=== PATIENT | female | born 1950 | race Caucasian/White ===

== ENCOUNTER 2016-07-10 21:59 | Inpatient (IN) | payer MEDICARE, OTHER ==
--- NOTE | ~2016-07-10 | CT71 ---
[facility] A Service of [facility] RADIOLOGY TEXT RESULTS PATIENT: KAZ MORENO LOCATION: CEDOF : 52 UNIT #: [id number] AGE: [address]: Yesika Musa MD SEX: F ORDER DR: [id number] [facility] [address] [facility] [facility]. [place], [place] [address] [id number] I MR#: [id number] Acc #: [id number] NAME: KAZ OMRENO : 1950 SEX: F STUDY DATE/TIME: 07/10/2016 23:11 UNIT: CEDOF ROOM: 00223 STUDY DESCRIPTION: CT Head Wo Contrast Attending Physician: Yesika Musa M.D. Ordering Physician: Coleman Vences M.D. Primary Care Physician: Abel Moreland M.D. MEDICAL IMAGING REPORT This report is preliminary unless electronic signature is present EXAM CT head. INDICATIONS Confusion for 1 day. Generalized weakness. TECHNIQUE CT of the head without contrast. This CT exam was performed with one or more of the following radiation dose reduction techniques: Automatic exposure control, adjustment of mA and/or kV according to patient size, and iterative reconstruction. COMPARISON CT head 01/23/2016. FINDINGS There is mild motion artifact on the exam. There is no acute intracranial hemorrhage, mass lesion, or acute infarct. There is mild global cerebral atrophy. Ventricles and basilar cisterns are normal in size and configuration. No extraaxial collections. No acute osseous abnormalities. IMPRESSION 1. Motion degraded exam, however no acute findings are identified. 2. Mild global atrophy. Dictated by... Jairon Whitehead M.D. THIS IS AN ELECTRONICALLY VERIFIED REPORT Jairon Whitehead M.D. at 07/11/2016 4:03 AM [facility] A Service of [facility] RADIOLOGY TEXT RESULTS PATIENT: KAZ MORENO LOCATION: CEDOF : 52 UNIT #: [id number] AGE: [address]: Yesika Musa MD SEX: F ORDER DR: AGATHA/freida TD: 07/11/2016 03:22 JOB #: [id number] MEDICAL IMAGING REPORT Page 1 of 1 COPY
--- NOTE | ~2016-07-10 | DS ---
Unit #: [id number] #: [id number] Patient: KAZ MORENO [id number] [address] [place], [place] [address] [id number] I MR#: [id number] NAME: KAZ MORENO ROOM: 305 Age: 66 Sex: F Admission Date: 07/11/2016 : 1950 Discharge Date: 07/11/2016 Attending Physician: Radha Joseph M.D. Primary Care Physician: Abel Moreland M.D. DISCHARGE SUMMARY PRINCIPAL DIAGNOSES 1. Acute delirium likely secondary to urinary tract infection. 2. Urinary tract infection with pending urine culture. 3. Atrial fibrillation, currently in normal sinus rhythm, maintain anticoagulation. 4. Diabetes mellitus type 2, insulin-requiring with associated peripheral neuropathy. 5. Hypertension. 6. Presumed depression with anxiety. 7. History of chronic migraine headaches. 8. Gastroesophageal reflux disease. CONSULTANTS Dr. Mejia, Neurology. PROCEDURES 1. EEG with questionable left central parietal abnormality without clinical evidence of seizure. 2. Chest x-ray July 10, 2016, without acute findings. 3. CT of the head without contrast on July 10, 2016, which was motion-degraded, atrophy noted. CLINICAL HISTORY AND HOSPITAL COURSE Ms. Moreno is a 66-year-old female brought into the emergency department with abrupt onset in mental status. The patient was combative in the emergency department, also required Geodon. She was found to have a urinary tract infection in the emergency department. Workup was, otherwise, unremarkable. She was admitted for further evaluation. Patient's mental status has completely returned to normal after dosing of Geodon. She was initially complaining of some right facial numbness but this was in association with one of her migraine headaches. Her headache has been treated and her right facial numbness has resolved. She has a nonfocal neurologic exam. Unfortunately, she is unable to have MRI secondary to her having a bladder stimulator. She did undergo an EEG with findings that were abnormal; however, she is maintained on Lamictal as an outpatient and has had no evidence of seizure. At this time, it is felt that the patient most likely had an acute delirium, whether this was secondary to urinary tract infection versus medication, versus perhaps some psychiatric etiology is unclear but she is back to baseline. We will complete a course of antibiotic therapy, continue her on her other home antibiotics and she will follow-up with her neurologist as an outpatient. DISCHARGE CONDITION Unit #: [id number] #: [id number] Patient: KAZ MORENO Stable. DISCHARGE STATUS Discharged to home. DISCHARGE MEDICATIONS 1. Keflex 500 mg p.o. t.i.d. for another 2 days. 2. Fioricet 50/300, 400 mg 1 every 4 hours p.r.n. for headache. 3. Zofran 4 mg p.o. q.6 hours p.r.n. for nausea. 4. Zestoretic 20/12.5 mg daily. 5. Eliquis 5 mg b.i.d. 6. Lamictal 200 mg twice daily. 7. Paxil 40 mg daily. 8. Metformin 1000 mg b.i.d. 9. Actos 30 mg daily. 10. Seroquel 50 mg at bedtime. 11. Ambien 10 mg q.h.s. p.r.n. for insomnia. 12. Xanax 0.5 mg b.i.d. 13. Norvasc 10 mg daily. 14. Sotalol 80 mg b.i.d. 15. Lantus 10 units subcutaneously at bedtime. 16. Percocet 10/325 one tablet p.o. q.6 hours p.r.n. for pain. 17. Protonix 40 mg daily. DISCHARGE INSTRUCTIONS The patient is instructed to follow a regular diet. She can increase her activity as tolerated. FOLLOW UP The patient will follow up with her primary provider, Dr. Moreland in 2 weeks. I will follow up urine culture tomorrow when available and adjust antibiotics if necessary. Dictated by... Radha Joseph M.D. ELIZABETH/tram TD: 07/12/2016 23:49 JOB #: [id number] DISCHARGE SUMMARY Page 1 of 1 X Radha Joseph MD DISCHARGE SUMMARY
--- NOTE | ~2016-07-10 | HP ---
Unit #: [id number] #: [id number] Patient: KAZ MORENO [id number] [address] [address] [id number] I MR#: [id number] NAME: KAZ MORENO ROOM: 36626 Age: 66 Sex: F Admission Date: 07/11/2016 : 1950 Attending Physician: Yesika Musa M.D. Primary Care Physician: Abel Moreland M.D. HISTORY AND PHYSICAL CHIEF COMPLAINT Altered mental status. HISTORY This 66-year-old female with atrial fibrillation, hypertension, AODM, anxiety disorder, is admitted for altered mental status. The patient, at this time, is only oriented x1. Family did not accompany the patient. EMS was called around 9 p.m. last evening for a sudden change in mental status. The patient was brought to this emergency department confused, combative and agitated requiring 20 mg of IM Geodon. She now was much more calm, but is still disoriented, no longer combative. In the course of her evaluation, she was found to have a urinary tract infection but little else to explain her altered mental status. PAST MEDICAL HISTORY 1. CAD with previous ST elevation DE 06/2007, associated with ventricular fibrillation requiring defibrillation and also cardiac arrest. Only mild to moderate disease noted on cardiac catheterization. Echo at that time revealed an ejection fraction of 40% to 45% with wall motion abnormalities. 2. Essential hypertension. 3. 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 4. Atrial fibrillation, on Eliquis and Betapace. 5. Migraine headaches. 6. Hyperlipidemia. 7. Anxiety disorder. 8. Kidney stone requiring stent placement complicated by right sided urinoma and hematuria. 9. Admission 01/2016 for left wrist abscess and septic arthritis with cultures positive for MRSA requiring four weeks of IV vancomycin. 10. BTL. 11. Cholecystectomy. 12. Nasal reconstructive surgery. ALLERGIES Penicillin, codeine, possibly aspirin. HOME MEDICATIONS I only have a partial list which makes mention of: 1. Lamictal 200 mg b.i.d. 2. Protonix 40 mg daily. 3. Norvasc 10 mg daily. 4. Percocet 10/325 q.i.d. Unit #: [id number] #: [id number] Patient: KAZ MORENO 5. Eliquis 5 mg b.i.d. Will contact [facility] for the rest of her medications. According to discharge summary 01/2016, patient was takin. Zestoretic. 2. Paxil. 3. Seroquel. 4. Ambien. 5. Xanax. 6. Sotalol. 7. Lipitor. 8. Levemir. 9. Sliding scale NovoLog. FAMILY HISTORY Breast and lung cancer along with CAD. SOCIAL HISTORY The patient is living with a male friend. She smokes one half pack per day of tobacco, does not drink alcohol. REVIEW OF SYSTEMS Difficult to obtain as patient is quite confused. PHYSICAL EXAMINATION GENERAL APPEARANCE: Pale appearing 66-year-old confused female, currently in no acute distress. VITAL SIGNS: Temperature 98.4, pulse 93, respirations 18, blood pressure 131/100. O2 saturation is 96% on room air. HEENT: Eyes PERRLA. Extraocular muscles are intact. Pharynx is benign. NECK: Supple without adenopathy or thyromegaly. CHEST: Clear. CARDIAC: Normal S1 and S2 without definite murmur. ABDOMEN: Bowel sounds are present. No hepatosplenomegaly, tenderness or masses. EXTREMITIES: Without edema. Pedal pulses are present. No ulcers on the feet. NEUROLOGIC EXAM: The patient is awake, she is alert. She is oriented to person only. Cranial nerves are intact. She has equal strength throughout. DIAGNOSTIC STUDIES LABORATORY: Admission labs - hematocrit is 34.8 with an elevated MCV, normal white count and platelet count. Coags are normal. SMA-12 - glucose 191, sodium 132, calcium 10.4, alkaline phos. 111, BHOB normal, alcohol level is less than 5. Urine tox screen positive for opiates, barbiturates and TCA. Urinalysis - 2+ leukocyte esterase with 25-50 white cells, no bacteria. IMAGING: Head CT - mild global atrophy. Chest x-ray - no acute disease. CARDIOVASCULAR: EKG - sinus rhythm, rate 78. Nonspecific ST wave Unit #: [id number] #: [id number] Patient: KAZ MORENO abnormalities with Q's noted in V1 and V2. ASSESSMENT 1. Abrupt change in mental status which could represent delirium: Rule out seizure, etc. 2. Likely urinary tract infection. 3. Adult onset diabetes mellitus with peripheral neuropathy. 4. Atrial fibrillation with left ventricular dysfunction: The patient is anticoagulated on Eliquis. 5. Hypertension. 6. Psychiatric disorder. 7. History of methicillin resistant Staph aureus. PLANS 1. Blood cultures. 2. Will give Rocephin and vancomycin. If patient's mental status is not clearing, would consider acyclovir and an LP. 3. EEG and MRI and will ask neurology to see. 4. Verify home medicines in the morning. 5. Again, if not clearing, will workup further. 6. Will decrease sedating medicines while confused. Dictated by Yesika Musa M.D. AML/df TD: 07/11/2016 05:08 JOB #: [id number] HISTORY AND PHYSICAL Page 1 of 1 X Yesika Musa MD X HISTORY AND PHYSICAL
--- NOTE | ~2016-07-10 | CO ---
Unit #: [id number] #: [id number] Patient: KAZ MORENO [id number] [facility] [address] [facility]. [place], [place] [address] [id number] Dora MR#: [id number] NAME: KAZ MORENO ROOM: 305 Age: 66 Sex: F Admission Date: 07/11/2016 : 1950 Attending Physician: Radha Joseph M.D. Primary Care Physician: Abel Moreland M.D. Consultation Date: 07/11/2016 CONSULTATION REPORT PRIMARY CARE PHYSICIAN Abel Moreland M.D. REASON FOR CONSULTATION Altered mental status. PATIENT IDENTIFICATION This is a 66-year-old right-handed female, evaluated in room 305 at [facility]. SOURCE OF INFORMATION Obtained from the patient as well as medical record. HISTORY OF PRESENT ILLNESS This is a 66-year-old right-handed female with past medical history of CAD; hypertension; diabetes mellitus type 2; atrial fibrillation, on anticoagulation with Eliquis; migraines; anxiety; hyperlipidemia, who presents to [facility] with change in mental status. She was apparently very confused and combative in the ER. Apparently, this was a sudden onset. The patient was brought in via EMS. Last known well was not clear. Looking in the ER records it seems though she may have been last known well at 2100 hours, but was noted to have sudden onset of mental status changes. There is no family at the bedside. When I discussed with the patient today, she is now alert and oriented. She did seem tearful and upset about not remembering what had happened. She received Geodon in the ER and a normal saline bolus and actually improved significantly. The patient states that she remembers getting up on the day of ER arrival and having migraine. She states that she has ongoing right-sided migraines and has for years. She states that sometime she does have auras though she denies having mental status changes with her migraines. She states that she does not remember a whole lot about coming to the hospital, but remembers feeling confused at home briefly. She was noted in the emergency room to be confused, combative, and agitated. Again, she required 20 mg of IM Geodon. She following that became much more calm, but was still disoriented. In the course of evaluation, she was noted to have a possible UTI and that was treated with initiation of antibiotics. She had a CT of the head without contrast done in the ER that was motion degraded, but no acute findings were noted. It does show mild global atrophy. The patient currently is back to her baseline essentially. She is oriented to person and place. She could tell me the day of the week, the day of the month, the year. She initially states it is April, but then corrects herself and realizes it is June. Otherwise, she can answer all questions appropriately. She can tell us through her pharmacy, as far as her medications confirmed, she can tell Unit #: [id number] #: [id number] Patient: KAZ MORENO us what medication she is on and why and can answer all questions appropriately at this time. Her urine tox screen was positive for opioids, barbiturates, and TCA. She did fill a prescription apparently yesterday for Ambien, but she states she has been on Ambien for years. She is on Percocet, Xanax, Paxil, Ambien, Fioricet, and Zofran among other medications. The patient states that she feels better and wants to go home today. She states that she lives with a male friend who helps watch out for her. She denies any change in her medications. She denies any recent illness or injury, infectious symptoms, travel outside the country, camping or exposure to ill or sick contacts or any recent injury or illness or neck pain. She does complain of acute on chronic right-sided headache with photophobia and phonophobia and reports that she has chronic migraines. She states that she takes p.r.n. Fioricet for migraines and sometimes Percocet and states that she is on Lamictal long-term for preventative therapy. She states that she used to see Dr. Abrams for Neurology Services, but has not seen a neurologist since he moved over to [place] that her primary care provider manages her medications for her migraines. PAST MEDICAL HISTORY 1. Migraines, see above. 2. CAD with previous ST-elevation myocardial infarction in 2007 associated with ventricular fibrillation that did require defibrillation and cardiac arrest, only bkwo-[id number] disease noted on cardiac catheterization. Echo at that time revealed an ejection fraction of 40% to 45% with wall motion abnormalities. 3. Hypertension. 4. Diabetes mellitus type 2 with diabetic peripheral neuropathy. 5. Atrial fibrillation, maintained on anticoagulation with Eliquis. 6. Hyperlipidemia. 7. Anxiety. 8. Kidney stone that required stent placement, complicated by right-sided urinoma and hematuria. 9. Admission in 01/2016 for left wrist abscess and septic arthritis with cultures positive for MRSA that required 4 weeks of IV vancomycin. 10. BTL. 11. Cholecystectomy. 12. Nasal reconstructive surgery. ALLERGIES Penicillin, codeine, aspirin. HOME MEDICATIONS As per medication reconciliation form that was done this morning include Ambien 10 mg p.o. q.h.s. p.r.n. insomnia, Eliquis 5 mg p.o. b.i.d., alprazolam 0.5 mg p.o. b.i.d., paroxetine 40 mg p.o. daily, lamotrigine 2 tablets p.o. b.i.d. she actually takes 200 mg b.i.d. per the patient, Betapace 80 mg p.o. b.i.d., metformin 1000 mg p.o. b.i.d., Percocet 10/325 one tablet p.o. q.6 hours p.r.n. pain, Actos 30 mg p.o. daily, Seroquel 50 mg p.o. q.h.s., Protonix 40 mg p.o. daily, Fioricet 50/300/40 mg capsule 1 tablet p.o. q.4 hours p.r.n. migraine, takes amlodipine besylate 10 mg p.o. daily, Zofran p.o. q.6 hours p.r.n. nausea dosage not listed, Zestoretic 10/12.5 mg tablet one tablet p.o. daily, Lantus SoloSTAR 10 units subcu at bedtime. FAMILY HISTORY Positive for malignancy and CAD. Unit #: [id number] #: [id number] Patient: KAZ MORENO SOCIAL HISTORY The patient lives with a male friend. She smokes a half pack per day of tobacco. Denies alcohol use or illicit drug use. REVIEW OF SYSTEMS 14-point review of systems was attempted. Pertinent positives are as discussed above, otherwise negative. PHYSICAL EXAMINATION VITAL SIGNS: Temperature 98.1, she has been afebrile; pulse 78; respirations 18; blood pressure 140/73, blood pressure in the ER on arrival was 131/100; oxygen saturation 99%. Height 5 feet 3 inches, weight 126 pounds. BMI is not listed. NEUROLOGIC: The patient is currently awake, alert, and oriented to person, place, and time. Essentially fully oriented to events though she did initially stated it was April. She could tell me the day of the week, why she is here, and answer questions appropriately. She has no right or left confusion. No finger agnosia. No aphasia, dysarthria, or apraxia. Cranial nerve exam, she demonstrates full lim of vision. Eyes are conjugate without ptosis or nystagmus. Extraocular movements are intact. Sensation of face and scalp is intact. Strength of the facial expression is intact. Hearing is intact to finger rub and conversation. Tongue is midline. Uvula is midline. Palate elevation is normal. Head turning and shoulder shrug are unremarkable. Neck is supple. Motor exam, she demonstrates normal bulk and tone. Strength is equal 5/5 in all extremities. Sensory exam, intact though she does have decreased sensation in a stocking type distribution of her lower extremities bilaterally. Gait unremarkable. I did watch her ambulate to the bathroom. Romberg deferred. Reflexes, unable to elicit. Toes are equivocal. Coordination unremarkable. DIAGNOSTIC STUDIES IMAGING STUDIES: CT of the head, please see above. Chest x-ray, portable single view on 07/10/2016, no acute cardiopulmonary findings or significant interval change per Radiology report. LABORATORY RESULTS: Sodium 134, potassium 4, chloride 104, CO2 of 23, glucose 148, BUN 14, creatinine 0.7, estimated GFR 91.6, calcium 10.2. White blood cell count 10.3, hemoglobin 12.7, hematocrit 36.9, and platelet count 414. Alcohol level less than 5. Initial estimated GFR 53. Urine tox screen positive for opioids, barbiturates, and TCA. PT is 10.0, INR 1.0, PTT 29.1. Urinalysis shows 2+ leuks, 25 to 50 white cells, negative for bacteria. Culture pending. Initial white count 9.8. IMPRESSION Change in mental status, not discussed above. The patient reports on exam, right facial numbness and right leg numbness, but no signs appreciated on exam. No abnormalities or focal deficits appreciated. She is noticing symptoms have resolved. Her mental status has resolved back to baseline. Differential diagnosis for this transient confusion would be to consider medication effect, possible migraine with rule out central etiology, so she is unable to undergo MRI here. She has a bladder stimulator. EEG shows very questionable central parietal phase reversing, but she is already on a good dose of Lamictal 200 mg b.i.d. and must also consider ischemic etiology. However, the patient is already on Eliquis and is taking her medications and is compliant according to the patient. I recommend that she remain on Eliquis and have further outpatient evaluation. She can be discharged to follow up with outpatient Neurology Unit #: [id number] #: [id number] Patient: KAZ MORENO for further testing. She is being medically managed. Given that she responded so well to Geodon, concerned for possible medication effect in treating her migraine, and she has improved with Fioricet. Continue home dose of Lamictal as well as Eliquis. The patient was seen by Dr. Mejia and he agrees to the above. Recommend that she have outpatient MRI at [facility] or [facility] if compatible with bladder stimulator and follow up with outpatient Neurology at either [facility] or with Dr. Ryan Lock. Please call for any questions or issues. We thank you very much for allowing us to assist in the care of this patient. Dictated by... Barb Dorado A.P.R.N. for Nesha Hampton/[place] TD: 07/12/2016 02:35 JOB #: [id number] CONSULTATION REPORT Page 1 of 1 X Barb Dorado APRN X CONSULTATION REPORT
--- NOTE | ~2016-07-10 | EE ---
Unit #: [id number] #: [id number] Patient: KAZ MORENO [id number] [address] [address] [id number] I MR#: [id number] NAME: KAZ MORENO : 1950 SEX: F STUDY DATE/TIME: 07/11/2016 UNIT: C3A PCU ROOM: 305 STUDY DESCRIPTION: EEG Attending Physician: Radha Joseph M.D. Referring Physician: Radha Joseph M.D. Primary Care Physician: Abel Moreland M.D. NEURODIAGNOSTICS REPORT EXAM EEG REASON FOR THE STUDY Episode of altered mental status. EEG DESCRIPTION This is an inpatient, digitally recorded multi-montage adult EEG with leads placed according to the International 10-20 System. Photic stimulation was attempted. This EEG shows 8 to 9 Hz posterior background. The patient then fell asleep and stage 2 sleep was seen. There were some transients seen between C3 and P3, occasionally very sharp looking, phase reversing with possibility of after following slow wave also but single and no other lim were seen. No clinical events were seen. Hyperventilation was not really done well. Photic stimulation was attempted in intermittent stepwise pattern up to the flash frequency of 30 Hz but I did not see any driving, asymmetry or paroxysmal activity. No clinical events were seen. IMPRESSION Possibility of some focal changes are seen. Could be transients, could be interictal discharges so please clinically correlate and correlate with imaging studies. Dictated by... Nesha Hampton/leelee TD: 07/12/2016 06:11 JOB #: [id number] Unit #: [id number] #: [id number] Patient: KAZ MORENO NEURODIAGNOSTICS REPORT Page 1 of 1 X Nii Mejia MD NEURODIAGNOSTICS REPORT
--- NOTE | ~2016-07-10 | EKG ---
PATIENT: KAZ MORENO UNIT #: [id number] Ventricular Rate: 78 BPM Atrial Rate: 78 BPM P-R Interval: 114 ms QRS Duration: 68 ms Q-T Interval: 378 ms QTC Calculation(Bezet): 430 ms P [place]: 33 degrees Calculated R [place]: -19 degrees Calculated T [place]: 24 degrees Diagnosis Line: Normal sinus rhythm Diagnosis Line: Low voltage QRS Diagnosis Line: Septal infarct , age undetermined Diagnosis Line: Abnormal ECG Diagnosis Line: When compared with ECG of 23-JAN-2016 02:08, Diagnosis Line: Vent. rate has decreased BY 60 BPM Diagnosis Line: Septal infarct is now Present Diagnosis Line: Nonspecific T wave abnormality no longer evident Diagnosis Line: in Anterolateral leads Diagnosis Line: Confirmed by MIRYAM BRANTLEY MD ([id number]) on 07/12/2016 Diagnosis Line: 5:57:39 PM INTERPRETING MD: KARON BRUMFIELD
--- NOTE | ~2016-07-10 | CR72 ---
[facility] A Service of [facility] & [facility] RADIOLOGY TEXT RESULTS PATIENT: KAZ MORENO LOCATION: [facility] [id number] : [birth year] UNIT #: [id number] AGE: [address]: Yesika Msua MD SEX: F ORDER DR: [id number] [facility] [address] [place], [place] [address] [id number] MR#: [id number] Acc #: [id number] NAME: KAZ MORENO : 1950 SEX: F STUDY DATE/TIME: 07/10/2016 22:29 UNIT: [facility] ROOM: 80179 STUDY DESCRIPTION: CR Chest Single View Portable Attending Physician: Yesika Musa M.D. Ordering Physician: Coleman Vences M.D. Primary Care Physician: Abel Moreland M.D. MEDICAL IMAGING REPORT This report is preliminary unless electronic signature is present EXAM Single view chest INDICATIONS Altered mental status. Combative. Shortness of air and cough. FINDINGS Single portable AP view of the chest compared to 01/23/2016. Heart and mediastinal contours are within normal limits. There are some chronic interstitial opacities in both lungs. These are unchanged. No pleural effusion. IMPRESSION No acute cardiopulmonary findings or significant interval change. Dictated by... Jairon Whitehead M.D. THIS IS AN ELECTRONICALLY VERIFIED REPORT Jairon Whitehead M.D. at 07/11/2016 4:03 AM RPC/freida TD: 07/11/2016 02:46 JOB #: [id number] MEDICAL IMAGING REPORT Page 1 of 1 COPY
[~2016-07-10 21:59] MED LIST: ACETAMINOPHEN PO; ACTOS30 MG PO; ALPRAZOLAM PO; AMBIEN PO; ASPIRIN PO; BACTRIM DS TABL1 TA1 PO; BENADRYL25 MG PO; BETAPACE80 MG PO; BLOOD PRESSURE MED; BLOOD THINNER PO; CIPRO PO; CLINDAMYCIN HC300 MG PO; CORDARONE200 M1 PO; DARVOCET-N 1001 TAB PO; ELIQUIS5 MG PO; FIORICET1 TAB PO; FLOMAX0.4 M1 PO; KEFLEX500 MG PO; LAMOTRIGINE100 MG PO; LANTUS SOLOSTAR3 ML SQ; LANTUS100 U/M1 SQ; LANTUS100 U/ML SQ; LEVEMIR SUBQ; LIPITOR PO; LISINOPRIL PO; LISINOPRIL20 MG PO; LOPRESSOR PO; LORTAB 10-5001 EACH PO; LOVASTATIN; MAG-OX 400400 M1 PO; METFORMIN HCL1000 M1 PO; METFORMIN PO; MUSCLE RELAXER; NALBUPHINE IM; NITROGYLCERIN SUBLINGUAL; NORCO1 TAB 10/3 PO; NOVOLOG100 U/ML; NUBAIN; NUBAIN IM; NUBAIN PO; PAXIL PO; PAXIL40 MG PO; PERCOCET 10/31 UDTA1 PO; PERCOCET 10/3251 TAB PO; PHENERGAN PO; PHENERGAN PR; PLAVIX PO; PREDNISONE PO; PROTONIX PO; RISPERIDONE; SEROQUEL PO; STADOL NASAL SPRAY; ULTRAM PO; VANCO 1 GR1 GM/250 M IV; VITAMIN B 12; WALKER; XANAX0.5 M1 PO; ZESTORETIC PO; ZITHROMAX PO; ZOCOR; ZOFRAN ODT4 MG DOB
[2016-07-10 22:39] LABS: BASOPHIL% 0.5 % (0-2.5); EOSINOPHIL# 0.3 X10e3 (0-0.7); EOSINOPHIL% 3.2 % (0.0-7.0); HEMATOCRIT 34.8 % (35.0-45.0); HEMOGLOBIN 11.7 gm/dL (12.0-16.0); LYMPHOCYTE# 1.7 X10e3 (1.0-3.5); LYMPHOCYTE% 17.8 % (17.0-45.0); MEAN CORPUSCULAR HGB CONC 33.7 g/dL (30-36); MONOCYTE# 0.5 X10e3 (0-1.0); MONOCYTE% 5.1 % (3.0-12.0); NEUTROPHIL# 7.2 X10e3 (1.5-7.1); NEUTROPHIL% 73.4 % (40-75); PLATELET COUNT 404 X10e3 (140-420); RED BLOOD COUNT 3.45 X10e (3.90-5.30); RED CELL DISTRIBUTION WIDTH 14.1 % (11.0-15.5); WHITE BLOOD COUNT 9.8 X10e3 (4.0-10.5)
[2016-07-10 22:40] LABS: DIFF IND NO
[2016-07-10 22:46] LABS: URINE SOURCE CLEAN CATCH
[2016-07-10 22:49] LABS: URINE APPEARANCE CLEAR; URINE BILIRUBIN NEG (NEG); URINE BLOOD NEG (NEG); URINE COLOR YELLOW; URINE GLUCOSE NEG (NEG); URINE KETONE NEG (NEG); URINE LEUKOCYTE ESTERASE 2+ (NEG); URINE NITRATE NEG (NEG); URINE PROTEIN NEG (NEG); URINE SPECIFIC GRAVITY 1.015 (1.003-1.035); URINE UROBILINOGEN 0.2 MG/DL (NEG)
[2016-07-10 22:51] LABS: CULTURE INDICATED? YES; URBCS1 AUWI 0-2 /[HPF] (0-2); URINE BACTERIA AUWI NEG (NEGATIVE); URINE SQUAMOUS EPITHELIAL CELL OCC /[HPF]; UWBCS1 AUWI 25-50 (0-5)
[2016-07-10 22:56] LABS: PARTIAL THROMBOPLASTIN TIME 29.1 SECONDS (23.5-31.3)
[2016-07-10 23:05] LABS: AMPHETAMINE NEG (NEG); BARBITURATES POS (NEG); BENZODIAZEPINES NEG (NEG); COCAINE NEG (NEG); MARIJUANA NEG (NEG); OPIATES POS (NEG); TRICYCLIC ANTIDEPRESSANTS POS (NEG); U METHADONE NEG (NEG)
[2016-07-10 23:41] LABS: ALBUMIN SERUM 3.6 g/dL (3.5-5.0); ALCOHOL BLOOD <5 mg/dL (0); ALKALINE PHOSPHATASE 111 U/L (32-92); ALT (SGPT) 5 U/L (10-40); AST (SGOT) 11 U/L (10-42); BETA HYDROXYBUTYRATE 0.09 MMOL/L (0.02-0.27); BILIRUBIN, DIRECT 0.1 mg/dL (0.0-0.2); BILIRUBIN,TOTAL 0.1 mg/dL (0.2-2.0); BLOOD UREA NITROGEN 16 mg/dL (9-23); BUN/CREATININE RATIO 14.54; CALCIUM SERUM 10.4 mg/dL (8.4-10.2); CARBON DIOXIDE 24 mmol/L (22-31); CHLORIDE 100 mmol/L (100-111); CREATININE SERUM 1.1 mg/dL (0.6-1.4); GLUCOSE FASTING 191 mg/dL (70-110); POTASSIUM 5.1 mmol/L (3.5-5.1); PROTEIN TOTAL SERUM 6.4 g/dL (6.0-8.3); SODIUM 132 mmol/L (135-145)
[2016-07-11 04:41] LABS: BASOPHIL# 0.1 X10e3 (0-0.3); BASOPHIL% 0.8 % (0-2.5); DIFF IND NO; EOSINOPHIL# 0.3 X10e3 (0-0.7); EOSINOPHIL% 3.2 % (0.0-7.0); HEMATOCRIT 36.9 % (35.0-45.0); HEMOGLOBIN 12.7 gm/dL (12.0-16.0); LYMPHOCYTE# 1.8 X10e3 (1.0-3.5); MEAN CELL VOLUME 99.4 FL (83-96); MEAN CORPUSCULAR HEMOGLOBIN 34.1 PG (28-34); MEAN CORPUSCULAR HGB CONC 34.4 g/dL (30-36); MEAN PLATELET VOLUME 8.2 FL (6.5-11.5); MONOCYTE# 0.6 X10e3 (0-1.0); MONOCYTE% 6.1 % (3.0-12.0); NEUTROPHIL# 7.5 X10e3 (1.5-7.1); NEUTROPHIL% 72.9 % (40-75); PLATELET COUNT 414 X10e3 (140-420); RED BLOOD COUNT 3.71 X10e (3.90-5.30); WHITE BLOOD COUNT 10.3 X10e3 (4.0-10.5)
[2016-07-11 05:12] LABS: CALCIUM SERUM 10.2 mg/dL (8.4-10.2); CREATININE SERUM 0.7 mg/dL (0.6-1.4); GLOM FILT RATE Estimated 91.6 mL/min (>60)
[2016-07-11] MEDS ORDERED: FIORICET 50-301 EACH PO (10:35)
[2016-07-11] MEDS ORDERED: NORVASC10 MG PO (10:35)
[2016-07-11] MEDS ORDERED: ZOFRAN ODT4 M1 PO (10:36)
[2016-07-11] MEDS ORDERED: LANTUS SOL100 UNIT/1 SUBQ (10:37)
[2016-07-11] MEDS ORDERED: ZESTORETIC 20-1 EAC1 PO (10:37)
[2016-07-11] MEDS ORDERED: KEFLEX500 MG PO (15:53)
[2016-11-08] MEDS ORDERED: PROGESTERONE200 MG PO (17:29)
[2016-11-08] MEDS ORDERED: ESTRACE1 M1 PO (17:30)
[2016-11-13] MEDS ORDERED: DELTASONE20 MG PO (15:48)
[2016-11-13] MEDS ORDERED: MAGOX 400400 MG PO (15:52)
[2016-11-13] MEDS ORDERED: LEVAQUIN750 MG PO (15:53)
[2016-11-13] MEDS ORDERED: DULERA 200 MCG/13 GM INH (15:54)
[2016-11-13] MEDS ORDERED: SYMBICORT INH (15:55)
[2016-11-13] MEDS ORDERED: PROAIR HFA8.5 GM INH (15:56)
== END 2016-07-11 16:00 | disposition home or self-care (01) | DRG 690 ==
LOC: CED 21:59 → CEDOF 07-11 01:00 → CED 07-11 01:17 → CEDOF 07-11 06:47 → C3A PCU 07-11 08:15 → CEDOF 07-11 08:15 → C3A PCU 07-11 16:00
PROVIDERS: Emergency Medicine; Internal Medicine
DX: N39.0 Urinary tract infection, site not specified (principal); E11.42 Type 2 diabetes mellitus with diabetic polyneuropathy; I48.91 Unspecified atrial fibrillation; I10 Essential (primary) hypertension; G43.909 Migraine, unspecified, not intractable, without status migrainosus; F32.9 Major depressive disorder, single episode, unspecified; F41.9 Anxiety disorder, unspecified; I25.10 Atherosclerotic heart disease of native coronary artery without angina pectoris; I25.2 Old myocardial infarction; Z79.01 Long term (current) use of anticoagulants; Z90.49 Acquired absence of other specified parts of digestive tract; Z98.51 Tubal ligation status; Z87.442 Personal history of urinary calculi; E78.5 Hyperlipidemia, unspecified; Z86.14 Personal history of Methicillin resistant Staphylococcus aureus infection; R41.0 Disorientation, unspecified; K21.9 Gastro-esophageal reflux disease without esophagitis
CPT/HCPCS: 36415; 70450; 71010; 80048; 80076; 80307; 81003; 82010; 82947; 85025; 85610; 85730; 87040; 87086; 93005; 95816; 96360; 96372; 99285; G0480; J0696; J1815; J3370; J3486

== ENCOUNTER 2016-08-20 21:53 | Emergency (ER) | payer MEDICARE, OTHER ==
--- NOTE | ~2016-08-20 | EKG ---
PATIENT: KAZ MORENO UNIT #: [id number] Ventricular Rate: 78 BPM Atrial Rate: 81 BPM QRS Duration: 60 ms Q-T Interval: 414 ms QTC Calculation(Bezet): 471 ms Calculated R Orchard: -16 degrees Calculated T Orchard: 4 degrees Diagnosis Line: Motion artifact Diagnosis Line: Confirmed by MARILYNN BROOKS MD ([id number]) on Diagnosis Line: 08/22/2016 8:20:33 AM INTERPRETING MD: CECILIA BRUMFIELD
--- NOTE | ~2016-08-20 | CR72 ---
[facility] A Service of [facility] & [facility] RADIOLOGY TEXT RESULTS PATIENT: KAZ MORENO LOCATION: [facility] : [birth year] UNIT #: [id number] AGE: [address]: Denilson Saul MD SEX: F ORDER DR: [id number] [facility] [address] [place], [place] [address] [id number] MR#: [id number] Acc #: [id number] NAME: KAZ MORENO : 1950 SEX: F STUDY DATE/TIME: 08/20/2016 22:41 UNIT: [facility] ROOM: STUDY DESCRIPTION: CR Chest Single View Portable Attending Physician: Denilson Saul M.D. Ordering Physician: Denilson Saul M.D. Primary Care Physician: Able Moreland M.D. MEDICAL IMAGING REPORT This report is preliminary unless electronic signature is present EXAM Single view chest. INDICATIONS Shortness of air. Weakness. 2-day duration. FINDINGS Single portable AP view of the chest compared to 07/10/2016. Heart and mediastinal contours normal. There is chronic interstitial opacities in both lungs. No pleural effusion. IMPRESSION No interval change. Dictated by... Jairon Whitehead M.D. THIS IS AN ELECTRONICALLY VERIFIED REPORT Jairon Whitehead M.D. at 08/21/2016 10:49 PM AGATHA/tram TD: 08/21/2016 16:47 JOB #: [id number] MEDICAL IMAGING REPORT Page 1 of 1 COPY
[~2016-08-20 21:53] MED LIST changes: +FIORICET 50-301 EACH PO; +LANTUS SOL100 UNIT/1 SUBQ; +NORVASC10 MG PO; +ZESTORETIC 20-1 EAC1 PO; +ZOFRAN ODT4 M1 PO
[2016-08-20 23:13] LABS: BASOPHIL# 0.1 X10e3 (0-0.3); BASOPHIL% 0.4 % (0-2.5); EOSINOPHIL# 0.1 X10e3 (0-0.7); EOSINOPHIL% 0.5 % (0.0-7.0); HEMATOCRIT 36.4 % (35.0-45.0); HEMOGLOBIN 11.8 gm/dL (12.0-16.0); LYMPHOCYTE# 1.6 X10e3 (1.0-3.5); MEAN CORPUSCULAR HEMOGLOBIN 32.4 PG (28-34); MEAN CORPUSCULAR HGB CONC 32.4 g/dL (30-36); MEAN PLATELET VOLUME 8.7 FL (6.5-11.5); MONOCYTE# 0.9 X10e3 (0-1.0); MONOCYTE% 5.8 % (3.0-12.0); NEUTROPHIL# 13.4 X10e3 (1.5-7.1); NEUTROPHIL% 83.3 % (40-75); PLATELET COUNT 478 X10e3 (140-420); RED BLOOD COUNT 3.64 X10e (3.90-5.30); RED CELL DISTRIBUTION WIDTH 13.9 % (11.0-15.5); WHITE BLOOD COUNT 16.1 X10e3 (4.0-10.5)
[2016-08-20 23:14] LABS: DIFF IND YES
[2016-08-20 23:24] LABS: BUN/CREATININE RATIO 12.3; CALCIUM SERUM 9.6 mg/dL (8.4-10.2); CREATININE SERUM 1.3 mg/dL (0.6-1.4); GLOM FILT RATE Estimated 43.3 mL/min (>60); POTASSIUM 3.7 mmol/L (3.5-5.1)
[2016-08-20 23:39] LABS: DIFFERENTIAL COMMENT ATY.LYMPHS; PLATELET ESTIMATE INCREASED (NORMAL)
[2016-08-20 23:40] LABS: ANISOCYTOSIS SL
[2016-08-21 01:10] LABS: URINE SOURCE CLEAN CATCH
[2016-08-21 01:13] LABS: URINE APPEARANCE CLOUDY; URINE BILIRUBIN NEG (NEG); URINE BLOOD TRACE (NEG); URINE COLOR YELLOW; URINE GLUCOSE >1000 MG/DL (NEG); URINE KETONE NEG (NEG); URINE LEUKOCYTE ESTERASE 2+ (NEG); URINE NITRATE NEG (NEG); URINE PH 5.5 (5-8); URINE PROTEIN TRACE (NEG); URINE SPECIFIC GRAVITY 1.025 (1.003-1.035); URINE UROBILINOGEN 0.2 MG/DL (NEG)
[2016-08-21 01:15] LABS: CULTURE INDICATED? YES; URINE BACTERIA AUWI NEG (NEGATIVE); URINE SQUAMOUS EPITHELIAL CELL NONE SEEN /[HPF]; UWBCS1 AUWI 200-300 (0-5)
[2016-08-21 01:35] LABS: URINE YEAST PRESENT
[2016-11-08] MEDS ORDERED: PROGESTERONE200 MG PO (17:29)
[2016-11-08] MEDS ORDERED: ESTRACE1 M1 PO (17:30)
[2016-11-13] MEDS ORDERED: DELTASONE20 MG PO (15:48)
[2016-11-13] MEDS ORDERED: MAGOX 400400 MG PO (15:52)
[2016-11-13] MEDS ORDERED: LEVAQUIN750 MG PO (15:53)
[2016-11-13] MEDS ORDERED: DULERA 200 MCG/13 GM INH (15:54)
[2016-11-13] MEDS ORDERED: SYMBICORT INH (15:55)
[2016-11-13] MEDS ORDERED: PROAIR HFA8.5 GM INH (15:56)
== END 2016-08-21 01:55 | disposition home or self-care (01) ==
LOC: CED 21:53
PROVIDERS: Emergency Medicine
DX: E11.65 Type 2 diabetes mellitus with hyperglycemia (principal); N39.0 Urinary tract infection, site not specified; I10 Essential (primary) hypertension; I48.91 Unspecified atrial fibrillation; F17.200 Nicotine dependence, unspecified, uncomplicated; Z88.0 Allergy status to penicillin; Z88.5 Allergy status to narcotic agent; Z88.6 Allergy status to analgesic agent; Z79.899 Other long term (current) drug therapy; Z79.4 Long term (current) use of insulin
CPT/HCPCS: 36415; 71010; 80048; 81003; 82947; 85025; 87086; 93005; 99285; J1815